=== PATIENT | female | born 1990 | race Caucasian/White ===

== ENCOUNTER 2018-03-22 11:19 | Emergency (ER) | payer OTHER ==
[2018-03-22] MEDS ORDERED: TORAdol 30 mg Injection IM ONE (11:44)
[2018-03-22] MEDS ORDERED: Norflex 60 MG/2 ML IM ONE (11:44)
[2018-03-22] MEDS ORDERED: Norflex 60 MG/2 ML ONE (11:53)
[2018-03-22] MEDS ORDERED: TORAdol 30 mg Injection ONE (11:53)
--- NOTE | 2018-03-22 11:53 | ERPHSYRPT ---
- History of Present Illness Time Seen by Provider: 03/22/18 11:30 Source: patient Exam Limitations: clinical condition Patient Subjective Stated Complaint: pt here for left neck pain since friday with no injury, she states she woke up that way Triage Nursing Assessment: has had advil x1. pt alert, walked in, resp easy, skin w/d/p Physician History: PATIENT STATES AFTER LIFTING HER FURNITURE LAST WEEK, 2 DAYS LATER DEVELOPED NECK AND UPPER BACK STIFFNESS, EXACERBATED UPON RANGE OF MOTION. DENIES TRAUMA OR INJURY, NUMBNESS, TINGLING OR WEAKNESS IN EXTREMITIES. Timing/Duration: day(s) Method of Injury: lifting Quality: sharp, other (STIFFNESS) Back Pain Location: C-spine, T-spine Severity of Pain-Max: moderate Severity of Pain-Current: moderate Modifying Factors: Improves With: movement Associated Symptoms: muscle spasms Previous symptoms: no prior history Allergies/Adverse Reactions: No Known Drug Allergies Allergy (Verified 03/22/18 11:32) Hx Tetanus, Diphtheria Vaccination/Date Given: No Hx Influenza Vaccination/Date Given: No Hx Pneumococcal Vaccination/Date Given: No Immunizations Up to Date: Yes - Review of Systems Constitutional: No Fever, No Chills Eyes: No Symptoms Ears, Nose, & Throat: No Symptoms Respiratory: No Cough, No Dyspnea Cardiac: No Chest Pain, No Edema, No Syncope Abdominal/Gastrointestinal: No Abdominal Pain, No Nausea, No Vomiting, No Diarrhea Genitourinary Symptoms: No Dysuria Musculoskeletal: No Back Pain, No Neck Pain Skin: No Rash Neurological: No Dizziness, No Focal Weakness, No Sensory Changes Psychological: No Symptoms Endocrine: No Symptoms All Other Systems: Reviewed and Negative - Past Medical History Pertinent Past Medical History: No - Past Surgical History Past Surgical History: Yes Other Surgical History: right shoulder - Social History Smoking Status: Current some day smoker Exposure to second hand smoke: Yes Drug Use: none Patient Lives Alone: No Significant Family History: no pertinent family hx - Female History Hx Last Menstrual Period: unknown Hx Now: No - Nursing Vital Signs Nursing Vital Signs: Initial Vital Signs Temperature 98.6 F 03/22/18 11:22 Pulse Rate 100 H 03/22/18 11:22 Respiratory Rate 16 03/22/18 11:22 Blood Pressure 108/66 03/22/18 11:22 O2 Sat by Pulse Oximetry 100 03/22/18 11:22 Pain Scale Pain Intensity 4 - Physical Exam General Appearance: no apparent distress, alert Eye Exam: PERRL/EOMI, eyes nml inspection Neck Exam: normal inspection, supple, full range of motion, other (BILATERAL LATERAL CERVICA SPINAL TENDERNESS, PARASPINAL THORACIC TENDERNESS T-1 TO T-4), No meningismus, No midline tenderness Respiratory Exam: normal breath sounds, lungs clear, No respiratory distress Cardiovascular Exam: regular rate/rhythm, normal heart sounds Gastrointestinal Exam: soft, No tenderness, No mass Back Exam: normal inspection, decreased range of motion, muscle spasm Extremity Exam: normal inspection, normal range of motion, No calf tenderness, No pedal edema Peripheral Pulses: carotid (R): 2+, carotid (L): 2+, femoral (R): 2+, femoral (L ): 2+, dorsalis-pedis (R): 2+ Neurologic Exam: alert, oriented x 3, cooperative, 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, normal mood/affect, nml station & gait, sensation nml, No motor deficits Skin Exam: normal color, warm, dry, No rash SpO2: 100 Oxygen Delivery: Room Air Ordered Tests: Medication Summary Discontinued Medications Generic Name Dose Route Start Last Admin Trade Name Ryanq PRN Reason Stop Dose Admin Ketorolac Tromethamine 60 mg 03/22/18 11:44 03/22/18 11:58 Toradol 30 Mg Injection IM 03/22/18 11:45 60 mg STAT ONE Administration Ketorolac Tromethamine Confirm 03/22/18 11:53 Toradol 30 Mg Injection Administered 03/22/18 11:54 Dose 60 mg .ROUTE .STK-MED ONE Orphenadrine Citrate 60 mg 03/22/18 11:44 03/22/18 11:58 Norflex 60 Mg/2 Ml IM 03/22/18 11:45 60 mg STAT ONE Administration Orphenadrine Citrate Confirm 03/22/18 11:53 Norflex 60 Mg/2 Ml Administered 03/22/18 11:54 Dose 60 mg .ROUTE .STK-MED ONE - Progress Progress: improved Progress Note: 03/22/18 11:51 ADMINISTERED TORADOL 60 MG/NORFLEX 60 MG IM Counseled pt/family regarding: diagnosis, need for follow-up - Departure Time of Disposition: 12:32 Departure Disposition: Home Clinical Impression: ACUTE CERVICAL STRAIN, UPPER THORACIC STRAIN Condition: Stable Critical Care Time: No Referrals: AMY JEFFERSON NP [Primary Care Provider] - Additional Instructions: BEGIN TORADOL 10MG EVERY 6 HOURS FOR PAIN NEEDED. NORFLEX 100MG EVERY 12 HOURS NEEDED FOR MUSCLE SPASM. CONSULT YOUR PRIMARY CARE PROVIDER FOR EVALUATION AND PHYSICAL THERAPY. Prescriptions: Ketorolac Tromethamine [Toradol] 10 mg PO Q6HPRN PRN #20 tablet PRN Reason: Pain
[2018-03-22 13:30] VITALS: BP 104/65; PULSE 80; O2SAT 96
== END 2018-03-22 13:29 | disposition home or self-care (01) ==
LOC: ED 11:19
DX: S16.1XXA Strain of muscle, fascia and tendon at neck level, initial encounter (principal); S29.012A Strain of muscle and tendon of back wall of thorax, initial encounter; M62.838 Other muscle spasm; X50.0XXA Overexertion from strenuous movement or load, initial encounter
CPT/HCPCS: 96372; 99284; J1885; J2360

== ENCOUNTER 2023-08-04 11:39 | Emergency (ER) | payer BC, OTHER ==
[2023-08-04 12:39] VITALS: BP 126/82; TEMP 98.7
--- NOTE | 2023-08-04 14:00 | ERPHSYRPT ---
- History of Present Illness Time Seen by Provider: 08/04/23 13:52 Source: patient Exam Limitations: no limitations Patient Subjective Stated Complaint: " I have pain in my right ankle since or Friday and I didn't injury it. The pain hasn't went away yet and it hurts when I walk" Triage Nursing Assessment: Pt presents to ER with complaints of right ankle pain x 4 or 5 days. Pt denies injury. States pain is intermittent and throbbing in nature. Pt states pain worsens when walking. Ankle is tender upon exam and slightly swollen. Rates pain 4/10 scale. Pt is alert and oriented x 3. Skin is pink, warm, and dry. Respirations are easy and unlabored. Denies any numbness or tingling to ankle. Pt has no other complaints. Physician History: Pt states she has had right ankle pain for the past 4 days, no injury. Pt states the pain is intermittent, throbbing and worse with walking. Allergies/Adverse Reactions: No Known Drug Allergies Allergy (Verified 08/04/23 12:38) Home Medications: No Reportable Medications [No Reported Medications] 08/04/23 [History] Hx Tetanus, Diphtheria Vaccination/Date Given: Yes Hx Influenza Vaccination/Date Given: Yes Hx Pneumococcal Vaccination/Date Given: No Immunizations Up to Date: No Travel Risk - International Travel Have you traveled outside of the country in past 3 weeks: No - Coronavirus Screening Are you exhibiting any of the following symptoms?: No Close contact with a COVID-19 positive Pt in past 14-21 Days: No - Vaccine Status Have you recieved a Covid-19 vaccination: Yes 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 - Vaccination Dates Date of 2cond Vaccination (if applicable): 2021 - Review of Systems Musculoskeletal: Other (right ankle pain) - Past Medical History Pertinent Past Medical History: No - Past Surgical History Past Surgical History: Yes Neuro Surgical History: No Pertinent History Cardiac: No Pertinent History Respiratory: No Pertinent History Gastrointestinal: No Pertinent History Genitourinary: No Pertinent History Musculoskeletal: Orthopedic Surgery Female Surgical History: No Pertinent History Other Surgical History: right shoulder - Social History Smoking Status: Never smoker Exposure to second hand smoke: Yes Drug Use: none Patient Lives Alone: No Significant Family History: no pertinent family hx - Female History Hx Last Menstrual Period: 07/04/23 Hx Now: No - Nursing Vital Signs Nursing Vital Signs: Initial Vital Signs Temperature 98.7 F 08/04/23 12:30 Pulse Rate 102 H 08/04/23 12:30 Respiratory Rate 20 08/04/23 12:30 Blood Pressure 126/82 08/04/23 12:30 O2 Sat by Pulse Oximetry 96 08/04/23 12:30 Pain Scale Pain Intensity 4 - Physical Exam General Appearance: alert Hips Exam: right: normal range of motion Legs Exam: right leg: normal range of motion Knees Exam: right knee: normal range of motion Ankle Exam: right ankle: normal range of motion, swelling (lateral aspect - mild with minimal ecchymosis laterally) Foot Exam: right foot: normal range of motion Neuro/Tendon Exam: normal sensation, normal motor functions Mental Status Exam: alert, cooperative Skin Exam: warm, dry SpO2 Interpretation: normal SpO2: 96 O2 Delivery: Room Air - Course Nursing assessment & vital signs reviewed: Yes - Radiology Exams Right Ankle X-ray Interpretation: Teleradiologist Report (No fractures or osseous abnormalities.) Ordered Tests: Active Orders 24 hr Category Date Time Status ANKLE (3 VIEWS) Stat Exams 08/04/23 12:29 Completed CBC W DIFF Stat Lab 08/04/23 14:32 Completed Uric Acid Stat Lab 08/04/23 14:32 Completed Lab/Rad Data: Laboratory Result Diagrams 08/04/23 14:32 Laboratory Results 08/04/23 08/04/23 Range/Units 14:32 14:32 WBC 11.3 H (4.0-10.5) x10^3/uL RBC 4.74 (4.1-5.4) x10^6/uL Hgb 14.1 (12.0-16.0) g/dL Hct 43.0 (35-47) % MCV 90.7 (78-100) fL MCH 29.7 (26-32) pg MCHC 32.8 (32-36) g/dL RDW 13.6 (11.5-14.0) % Plt Count 301 (150-450) x10^3/uL MPV 9.5 (7.5-11.0) fL Gran % 63.7 (36.0-66.0) % Immature Gran % (Auto) 0.4 (0.00-0.4) % Nucleat RBC Rel Count 0.0 (0.00-0.1) % Eos # (Auto) 0.12 (0-0.5) x10^3/uL Immature Gran # (Auto) 0.05 H (0.00-0.03) x10^3u/L Absolute Lymphs (auto) 3.15 (1.0-4.6) x10^3/uL Absolute Monos (auto) 0.71 (0.0-1.3) x10^3/uL Absolute Nucleated RBC 0.00 (0.00-0.01) x10^3u/L Lymphocytes % 27.8 (24.0-44.0) % Monocytes % 6.3 (0.0-12.0) % Eosinophils % 1.1 (0.00-5.0) % Basophils % 0.7 (0.0-0.4) % Absolute Granulocytes 7.21 H (1.4-6.9) x10^3/uL Basophils # 0.08 (0-0.4) x10^3/uL Uric Acid 4.7 (2.6-6.0) mg/dL - Progress Counseled pt/family regarding: diagnosis, need for follow-up, rad results Medical Desision Making - Diagnostic Testing Diagnostic test were ordered, analyzed, and reviewed by me: Yes Radiological Interpretation: Teleradiologist Report - Departure Departure Disposition: Home Clinical Impression: Right ankle pain Condition: Stable Critical Care Time: No Referrals: AMY JEFFERSON, CHENCHO [Primary Care Provider] - Follow up/PCP as directed Additional Instructions: Elevate right ankle above heart level for the next 24 hours. Take motrin as needed for pain.
[2023-08-04 14:33] LABS: Absolute Neutrophil Ct (ANC) 7.21 x10^3/uL (1.4-6.9); BASOPHIL % 0.7 % (0.0-0.4); Basophil (Absolute #) 0.08 x10^3/uL (0-0.4); Eosinophil % 1.1 % (0.00-5.0); Eosinophil (Absolute #) 0.12 x10^3/uL (0-0.5); Hemoglobin 14.1 g/dL (12.0-16.0); IMMATURE GRAN # 0.05 x10^3u/L (0.00-0.03); IMMATURE GRAN % 0.4 % (0.00-0.4); Lymphocyte (Absolute #) 3.15 x10^3/uL (1.0-4.6); Lymphocytes % 27.8 % (24.0-44.0); Mean Cell Volume 90.7 fL (78-100); Mean Corpuscular Hemoglobin 29.7 pg (26-32); Mean Corpuscular Hgb Concent. 32.8 g/dL (32-36); Mean Platelet Volume 9.5 fL (7.5-11.0); Monocyte (Absolute #) 0.71 x10^3/uL (0.0-1.3); Monocytes % 6.3 % (0.0-12.0); Neutrophil % 63.7 % (36.0-66.0); Platelet Count 301 x10^3/uL (150-450); Red Blood Count 4.74 x10^6/uL (4.1-5.4); Red Cell Distribution Width 13.6 % (11.5-14.0); White Blood Count 11.3 x10^3/uL (4.0-10.5)
--- NOTE | 2023-08-04 14:54 | XRAY ---
CLINICAL HISTORY:ankle pain COMPARISON:None. TECHNIQUE:X-ray of right ankle AP, lateral and oblique views. FINDINGS: Normal bone density. No fracture or bony abnormality was seen. Ankle joint space is preserved. Fat planes are intact. Os trigonum is noted. IMPRESSION: No acute fractures or osseous abnormalities. (Disclaimer: "A subtle bone abnormality or fracture may not be readily apparent on x-rays, thus clinical correlation and further imaging including follow-up CT, MRI, or follow-up x-rays are advised as needed"). Electronically Signed by: Ana Rivers MD. (08/04/2023 14:50:03 EST)
[2023-08-04 15:02] VITALS: PULSE 84; RESP 16; O2SAT 98
== END 2023-08-04 15:02 | disposition home or self-care (01) ==
LOC: ED 11:39
DX: M25.571 Pain in right ankle and joints of right foot (principal)
CPT/HCPCS: 36415; 73610; 84550; 85025; 99283